=== PATIENT | male | born 1985 | race Caucasian/White ===

== ENCOUNTER 2018-08-16 12:39 | Outpatient (REF) | payer OTHER, SELFPAY ==
[2018-08-16 13:29] LABS: HCT 43.3 % (40.0-50.0); HGB 14.4 g/dL (13.5-17.5); Mean Corp. HGB Concentration 33.3 g/dL (32.0-36.0); Mean Corpuscular Hemoglobin 28.2 pg (27.0-33.0); Mean Corpuscular Volume 84.7 fL (80-95); Mean Platelet Volume 9.6 fL (8.0-11.0); Platelet Count 307 x1000/uL (130-400); RBC 5.11 m/cumm (4.50-6.00); RBC Distribution Width 12.9 % (11.8-14.1); White Blood Cell Count 7.48 k/cumm (4.4-10.8)
[2018-08-16 13:43] LABS: ALT 30 U/L (12-78); AST 18 U/L (15-37); Alkaline Phosphatase 76 U/L (46-116); Anion Gap 10.8 mmol/L (3-11); BUN 15 mg/dL (7-18); Bilirubin, Total 0.8 mg/dL (0.2-1.0); CO2 27.2 mmol/L (21.0-32.0); CREATININE 0.96 mg/dL (0.70-1.30); Calculated LDL 120 mg/dL; Chloride 102 mmol/L (98-107); Cholesterol 177 mg/dL (50-200); Glucose 92 mg/dL (70-100); HDL Cholesterol 40 mg/dL (40-60); Potassium 4.4 mmol/L (3.5-5.1); Sodium 140 mmol/L (136-145); Triglyceride 87 mg/dL (30-150)
== END 2018-08-16 12:59 ==
LOC: NCHCN 12:39
PROVIDERS: PCP Internal Medicine; Visit Provider Nurse Practitioner Family
DX: Z00.00 Encounter for general adult medical examination without abnormal findings (principal); Z13.220 Encounter for screening for lipoid disorders; Z13.0 Encounter for screening for diseases of the blood and blood-forming organs and certain disorders involving the immune mechanism; Z13.228 Encounter for screening for other metabolic disorders
CPT/HCPCS: 80053; 80061; 83721; 85027

== ENCOUNTER 2021-11-18 02:09 | Outpatient (CLI) | payer BC, SELFPAY ==
[2021-11-18] MEDS: Albuterol HFA 18 GM 200 PUFF INH IH (11:40)
[2021-11-18] MEDS: Inhaler, Assist Device 1 EACH MC (11:41)
--- NOTE | 2021-11-18 12:13 | W.PFT ---
Date of service: 11/18/21 Time of Service: 10:08 Pulmonary Function Test Result Requesting Provider Nathan Wheeler Indications: Nocturnal Dyspnea Interpretation Spirometry: There is mild airflow limitation. There is a significant bronchodilator response. Lung Volumes: Lung volumes are normal. Diffusion Capacity: Diffusion is normal. Airway Pressure: Normal airways resistance Impression Mild airflow obstruction with a significant bronchodilator response. In the correct clinical setting this could represent poorly controlled asthma or chronic bronchitis (COPD). Clinical Correlation therefore is recommended.
== END 2021-11-18 02:10 | disposition home or self-care (01) ==
LOC: RT 02:09
PROVIDERS: PCP Internal Medicine; Visit Provider Family Medicine
DX: R06.02 Shortness of breath (principal); R05.8 Other specified cough; J98.8 Other specified respiratory disorders; R06.09 Other forms of dyspnea
CPT/HCPCS: 94060; 94726; 94729

== ENCOUNTER 2022-09-09 09:36 | Outpatient (CLI) | payer BC, SELFPAY ==
--- NOTE | 2022-09-09 09:27 | DI.RAD_ITS ---
Exam(s) XR KNEE LT 3V AP,LAT,YAMILETH EXAM: XR KNEE LT 3V AP,LAT,YAMILETH CLINICAL HISTORY: Left knee pain. TECHNIQUE: 2D digital imaging was performed of the left knee. Three images were obtained. Merchant ,AP and lateral views were obtained. COMPARISON: No exams were available for comparison FINDINGS: BONES: No acute fracture is present. No bony destructive lesion is seen. JOINTS: The knee is normally aligned. There is a small joint effusion. Small osteophytes are seen in the medial femoral tibial and patellofemoral joint. There is mild narrowing in the femoral tibial j oint space. SOFT TISSUE: Normal. IMPRESSION: Mild degenerative changes of the knee. Small joint effusion. DATA REPOSITORY: RADIATION DOSE DELIVERED:
== END 2022-09-09 09:37 | disposition home or self-care (01) ==
LOC: DIORS 09:36
PROVIDERS: PCP Family Medicine; Referring Provider Family Medicine; Visit Provider Student in an Organized Health Care Education/Training Program
DX: M25.462 Effusion, left knee; M17.12 Unilateral primary osteoarthritis, left knee
CPT/HCPCS: 73562

== ENCOUNTER → 2022-11-05 02:04 | Outpatient (CLI) | payer BC, SELFPAY ==
--- NOTE | 2022-11-05 09:30 | DI.MRI_ITS ---
Exam(s) MR LOWER JOINT LT WO EXAM: MR LOWER JOINT LT WO CLINICAL HISTORY: ? LATERAL MENISCAL TEAR,INJURY LT MENISCUS,S83.8X2A. TECHNIQUE: Multiplanar multisequence MRI was performed. COMPARISON: CR XR KNEE LT 3V AP,LAT,YAMILETH from 09/09/2022 FINDINGS: BONES: There is no fracture or contusion pattern. There is marrow edema seen in the lateral tibial pl ateau without definite fracture. JOINTS: Articular cartilage is unremarkable. There is a small joint effusion. TENDONS: Extensor mechanism: Unremarkable. Medial retinaculum: Unremarkable. Lateral retinaculum: Unremarkable. Popliteus: Unremarkable. MUSCLES: Unremarkable. MENISCI: The medial meniscus is unremarkable. There is degenerative signal seen in the body of the l ateral meniscus. SOFT TISSUES: There is a popliteal cyst present. LIGAMENTS: Anterior Cruciate: Unremarkable. Posterior Cruciate: Unremarkable. Medial Collateral:Unremarkable. Lateral Collateral: Unremarkable. OTHER: IMPRESSION: 1. Marrow edema seen in the lateral tibial plateau. This may represent a contusion no fractures iden tified. There is very mild marrow edema also seen in the lateral femoral condyle. 2. Degenerative signal seen in the body of the lateral meniscus. 3. No evidence of a ligament tear. 4. Small joint effusion. 5. Popliteal cyst. DATA REPOSITORY:
== END ==
PROVIDERS: PCP Family Medicine; Visit Provider Student in an Organized Health Care Education/Training Program
DX: S83.8X2A Sprain of other specified parts of left knee, initial encounter (principal); M17.12 Unilateral primary osteoarthritis, left knee; X58.XXXA Exposure to other specified factors, initial encounter
CPT/HCPCS: 73721

== ENCOUNTER 2023-02-02 12:59 | Outpatient (CLI) | payer BC, SELFPAY ==
[2023-02-02 11:44] LABS: Abs Immature Grans 0.03 10^3/uL (0.0-0.06); Absolute Basophil Count 0.04 10^3/uL (0.0-0.2); Absolute Eosinophil Count 0.01 10^3/uL (0.0-0.7); Absolute Lymphocyte Count 1.07 10^3/uL (1.2-3.4); Absolute Monocyte Count 0.94 10^3/uL (0.1-0.8); Absolute Neutrophil Count 6.85 10^3/uL (1.2-6.7); Basophils % 0.4; Eosinophils % 0.1; HCT 47.2 % (40.0-50.0); HGB 15.4 g/dL (13.5-17.5); Immature Grans % 0.3; MCH 27.4 pg (27.0-33.0); MCHC 32.6 % (32.0-36.0); MCV 84 fL (80-95); MPV 8.2 fL (8.0-11.0); Monocytes % 10.5; Neutrophils % 76.7; Platelet Count 210 10^3/uL (130-400); RBC 5.62 10^6/uL (4.36-5.78); RDW 12.5 % (11.8-14.1); RDW-SD 38.2 fL; WBC 8.94 10^3/uL (4.4-10.8)
[2023-02-02 12:01] LABS: ALT 27 U/L (16-63); AST 17 U/L (15-37); Alkaline Phosphatase 61 U/L (46-116); Anion Gap 7.9 mmol/L (3-11); BUN 9 mg/dL (7-18); Bilirubin, Total 0.7 mg/dL (0.2-1.0); CO2 28.1 mmol/L (21.0-32.0); CREATININE 1.1 mg/dL (0.70-1.30); Chloride 98 mmol/L (98-107); Estimated GFR 87.57 (mL/min/1.73m2); Glucose 114 mg/dL (74-106); Potassium 4.1 mmol/L (3.5-5.1); Sodium 134 mmol/L (136-145); Total Protein 7.9 g/dL (6.4-8.2)
--- OUTSIDE RECORDS SUMMARY | 2023-02-02 13:01 | XMS_ITS | Continuity of Care Document ---
Author Name Unknown Organization [facility] Address [address] [place] [address] Encounter [facility] FIN NBR [id number] Date(s): 01/03/23 - 01/03/23 [facility] [address] [place] [address]- [place] Encounter Diagnosis Sore throat(Discharge Diagnosis) - 01/03/23 Strep pharyngitis(Discharge Diagnosis) - 01/03/23 Discharge Disposition: Home or Self Care Attending Physician: Evette Harper PA-C Admitting Physician: Evette Harper PA-C Allergies, Adverse Reactions, Alerts No Known Allergies Functional Status 01/03/23 Other exposure to Infectious Disease COV ID-19 Symptoms Present Medications amoxicillin 500 mg oral capsule 500 mg = 1 cap, Oral, every 12 hr, # 20 cap, 0 Refill(s), Pharmacy: [facility] #[id number] Start Date: 01/03/23 Status: Ordered Flonase 0 Refill(s) Start Date: 01/03/23 Status: Ordered Symbicort 80 mcg-4.5 mcg/inh inhalation aerosol 0 Refill(s) Start Date: 01/03/23 Status: Ordered Results Laboratory List Name Date Rapid Strep POCT 01/03/23 Most recent to oldest [Reference Range]: 1 Rapid Strep POCT [Negative] Positive *ABN* (01/03/23 10:10 AM) Vital Signs Most recent to oldest [Reference Range]: 1 Temperature Tympanic [36.6-38.1 Deg C] 3 7.3 Deg C (01/03/23 9:57 AM) Peripheral Pulse Rate [60-100 bpm] 98 bp m (01/03/23 9:57 AM) Respiratory Rate [12-24 br/min] 16 br/mi n (01/03/23 9:57 AM) Blood Pressure [90-140/60-90 mmHg] 150/7 2mmHg *HI* (01/03/23 9:57 AM) Mean Arterial Pressure, Cuff [70-110 mmH g] 98 mmHg (01/03/23 9:57 AM) Physician Outpatient Note * Evette Harper PA-C: PERFORM Event Display: Office Clinic Note Physician Authored Date: [id number] [facility] :1985 Age:37 years Sex:Male Visit Date:01/03/2023 Chief Complaint Sore throat, swollen tonsils, fever, body aches, RODRIGUEZ, and fatigue since wednesday night History of Present Illness This is a 37-year-old male who presents for evaluation of sore throat. ??Patient reports that on Wednesday he began to feel under the weather. ??He woke Wednesday morning with a severe sore throat. ??He has had painful swallowing.?? He is tolerating small sips of tea but??has been having difficulty??drinking large amounts of fluids or eating any food. ??He is feeling feverish and achy. ??He has not had a cough or congestion.?? He denies difficulty??managing his own saliva, drooling Physical Exam Vitals & Measurements T:??37.3?C ??(Tympanic)?? HR:??98??(Peripheral)?? RR:??16?? BP:??150/72?? SpO2:??98%?? Pain Score:??5?? General: A&O x 3, well-built and hydrated, no acute distress Eyes: PERRLA, no redness or drainage Ears: auditory canals non-tender bilaterally, bilateral TMs translucent and pearly davis Nose: nares moist and patent Mouth: moist mucous membranes without lesions Throat: Tonsils 3+ bilaterally with erythema and copious exudate,??no uvular deviation??or trismus,no abscess appreciated, managing secretions Neck:??Moderately enlarged, tender anterior cervical lymphadenopathy Chest: symmetric rise Heart: normal S1S2, no murmurs, rubs, gallops Lungs: equal and symmetric respiratory effort, lungs clear to auscultation without wheezes, rales, rhonchi Assessment/Plan 1.??Strep pharyngitis??J02.0 Patient tested positive for strep today and will be treated accordingly with amoxicillin. ??He has had difficulty??drinking fluids and eating any food over the past week. ??He does not have any evidence of abscess, uvular deviation, trismus on exam??but given he has had difficulty hydrating,??he??did request treatment with a one-time dose of a steroid today. ??I feel this is appropriate given??his presentation. ??We reviewed risks and benefits. ??He was given 10 mg of dexamethasone IM today.?? Encouraged rest, fluids, taking Tylenol for any pain or fever. ??Advise he avoid any??NSAIDs for thenext??24 hours.?? A humidifier and throat coat tea may be therapeutic. ??Patient is to follow-up for any worsening sore throat,??difficulty??tolerating fluids p.o., drooling, etc. Ordered: amoxicillin 500 mg oral capsule, 500 mg = 1 cap, Oral, every 12 hr, # 20 cap, 0 Refill(s), Pharmacy: [facility] #[id number] ?? Sore throat??J02.9 ?? Medications and Immunizations This Visit Given dexamethasone, 10 mg, IM. For: Strep pharyngitis Problem List/Past Medical History Ongoing No qualifying data Historical No qualifying data Medications amoxicillin 500 mg oral capsule, 500 mg= 1 cap, Oral, every 12 hr Flonase Symbicort 80 mcg-4.5 mcg/inh inhalation aerosol Allergies No Known Allergies Lab Results Test Name Test Result Date/Time Rapid Strep POCT Positive 01/03/2023 10:10 EST Electronically Signed on 01/03/23 11:09 AM Evtete Harper PA-C Patient Care team information Care Team Related Persons Name: OZZIE LEÓN
== END 2023-02-02 13:00 | disposition home or self-care (01) ==
LOC: LBO 13:00
PROVIDERS: PCP Family Medicine; Visit Provider Nurse Practitioner Family
DX: R19.7 Diarrhea, unspecified (principal)
CPT/HCPCS: 36415; 80053; 85025

== ENCOUNTER 2023-02-02 19:26 | Outpatient (REF) | payer BC, SELFPAY ==
[2023-02-02 15:35] LABS: C Diff PCR Negative (Negative)
[2023-02-03 10:33] LABS: Campylobacter PCR Negative (Negative); Shiga Toxin PCR Negative (Negative); Shigella/Enteroinvasive Ecoli Negative (Negative)
[2023-02-04 16:39] LABS: Salmonella PCR Positive (Negative)
== END 2023-02-02 19:27 | disposition home or self-care (01) ==
LOC: LBN 19:26
PROVIDERS: PCP Family Medicine; Visit Provider Nurse Practitioner Family
DX: R19.7 Diarrhea, unspecified (principal)
CPT/HCPCS: 87329; 87493; 87505

== ENCOUNTER 2023-07-21 13:21 | Outpatient (REF) | payer BC, SELFPAY ==
[2023-07-21 15:32] LABS: Calculated LDL 104 mg/dL (<100); Cholesterol 176 mg/dL (<200); HDL Cholesterol 57 mg/dL (40-60); Triglyceride 78 mg/dL (<150)
[2023-07-23 11:54] LABS: Apolipoprotein B, S 79 mg/dL
== END 2023-07-21 13:22 | disposition home or self-care (01) ==
LOC: NCHCN 13:21
PROVIDERS: PCP Family Medicine; Visit Provider Student in an Organized Health Care Education/Training Program
DX: Z13.220 Encounter for screening for lipoid disorders (principal); Z13.228 Encounter for screening for other metabolic disorders
CPT/HCPCS: 80061; 82172

== ENCOUNTER 2023-11-19 06:15 | Day surgery (SDC) | payer BC, SELFPAY ==
--- NOTE | 2023-11-18 14:35 | HPE_ITS ---
Date of service: 11/19/23 Time of Service: 07:30 Assessment and Plan Assessment and plan (1) Family history of colon cancer: Status: Acute Assessment and plan: Plan: Colonoscopy w/ general & natural airway. The?patient will be scheduled by my office. -Patient has 2 family members with second-degree colorectal cancer. It would not be unreasonable to start screening at home. Informed consent is obtained for the procedural (explained in simple layman's terms that?the pt and/or family could understand) explaining risks vs benefits and alternatives to the procedure and consequences if we do not do the procedure and need/rational for the procedure. Risks include but are not limited to: bleeding, infection, perforation of colon.? This would necessitate emergency surgery to repair the damage w/ possible ostomy; and other associated complications w/ the required surgery. ? Also complications of anesthesia including aspiration, CA/CVA/, inability to complete the procedure. (2) Family history of secondary colorectal cancer: Status: Acute (3) Asthma: Status: Chronic History of Present Illness Narrative: Patient is here today for colonoscopy for CRC screening.??? They completed a bowel prep with just a clear yellow residual effluent.? They not having any chest pain or shortness of breath, currently.? They are not experiencing any fever or chills.? They deny any productive cough or upper respiratory tract infection signs or symptoms.? They are not having abdominal pain, or nausea and vomiting.? They have not had any changes in medications, past medical history or past surgical history since previously being seen in the office. They have not had any accidents or have been in the ER since the clinic pre-operative evaluation. ??I reviewed the procedure with the patient today, including risks a nd benefits of the procedure, and what they could expect at home for recovery.? All questions are answered to the patient?s satisfaction today, and they are stable to proceed with the proposed procedure. RN: Pt here for colonoscopy pre op. Family history of colon cancer, maternal great uncle and paternal grandmother.. Pt denies any recent bowel habit changes, but does state that bowels are variable based on diet and travel. Pt seen at the request of PCP regarding colon cancer screening. Pt has had colon cancer screening before.? He notes his bowels are variable depnding on travel and exercise- very irrgular . .? They deny any pain or difficulty with bowel movements, or rectal bleeding.?Occ will have some bleeding when he wipes w/ a hard stools, rare and probably related not not driking enough fluids. . There is family history of any colon cancer.? Pt has not had any unexplained weight loss.? Their appetite is good.? ?They deny heart, lung, or kidney prob lems. They are having heartburn or indigestion. They have not had any prior colo-rectal surgery.? The patient has not had a prior prostate sx or XRT. .? They deny any problems with anesthesia in the past. GERD: more than 1 beer or more than 2 days in a row. Fried foods. takes prn zantac Had episode of Salmenella. Recurred since then. Paternal Gma- age 60-70 Maternal Uncle - age Anesthesia: general (without airway) Previous surgical intolerances: No Previous surgical complications: No Pulmonary risk factors: Planned procedure: Yes Sleep apnea risks: No COPD/Asthma/Smoker: Asthma- exercise and seasonal allergies. only uses prn inhaler in spring or if long bike ride. Can climb one flight of stairs (12-13 steps) in less than 30 seconds without stopping and without symptoms: Yes The surgery proposed for this patient is: low risk Active cardiac conditions: none Active risk factors: none ASA (acetylsalicylic acid): not used Beta blockers: not used Kidneys: no concerns DM: no CVA/CA- No ?PSHX R knee scopes anesthesia- no problems Review of Systems All systems reviewed & are unremarkable except as noted in HPI and below PFSH All Active Problems Family history of secondary colorectal cancer (Acute) x2 2nd degree family members w/ CRC Left knee DJD (Acute) Injury of meniscus of left knee (Acute) Asthma (Chronic) Family history of colon cancer (Acute) x2 2nd degree family members w/ CRC Vertigo (Acute) Lower back pain (Acute) Wrist pain (Acute) Skin lesions (Acute) Skin rash (Acute) Uses contraception (Acute) SOB (shortness of breath) (Acute) Allergic rhinitis (Acute) Medical History Salmonella gastroenteritis Surgical History Hx of arthroscopy of knee Social History Smoking/Tobacco Use Status: Never Smoking risk assessment performed?: Yes Alcohol Intake: never Drug use: Never Substance use type: does not use Housing: house Current gender identity: male Do you feel safe at home: Yes Do you feel safe in your relationship?: Yes Meds Allergies and Home Medications Allergies Allergy/AdvReac Type Severity Reaction Status Date / Time No Known Allergies Allergy Verified 11/19/23 06:40 Home Medications ?Medication ?Instructions ?Recorded ?Confirmed ?Type cetirizine 10 mg tablet 10 mg PO DAILY PRN 11/06/21 11/19/23 History budesonide-formoterol HFA 160 2 puff inhalation BID 08/09/23 11/19/23 History mcg-4.5 mcg/actuation aerosol inhaler (Symbicort) fluticasone propionate 50 1 spray intranasal BID 11/18/23 11/19/23 History mcg/actuation nasal spray,suspension Exam Narrative Exam Narrative: PHYSICAL EXAM GENERAL APPEARANCE: Alert, healthy appearance, oriented, x 3,? in no acute distress HYDRATION: Well hydrated HEAD, EYES, EARS, NECK, THROAT: Head is normocephalic, pupils equal, round, re active to light and accommodation, ocular movement intact, sclera clear and no jaundice. ?Dentition intact. LUNGS: normal respiration/normal chest excursion. ?Clear to auscultation bilaterally. ?No wheeze. ?HEART: Regular rate and rhythm. no murmurs ABDOMEN: soft and non-tender to palpation.? Normal bowel sounds. Time Spent Time spent with Patient: <40 minutes Time was spent: preparing to see the patient(eg.review tests), obtaining and/or reviewing separately otained hiistory, ordering medications,tests, procedures, referring, communicating with other health assistant child care teacher, indepentently interpreting results, counseling the patient, care coordination and other
--- NOTE | 2023-11-18 14:37 | PDOC.DSDIS_ITS ---
Date of service: 11/19/23 Time of Service: 08:20 Discharge Plan Disposition Patient Disposition: Home Condition: Good Discharge Details Reason For Visit: crc screening Attending Provider: Emilia Marx Primary Care Provider: Nathan Wheeler Home Meds and New Rx's Prescriptions: No Action cetirizine 10 mg tablet 10 mg PO DAILY PRN budesonide-formoterol [Symbicort] 160-4.5 mcg/actuation HFA aerosol inhaler 2 puff inhalation BID fluticasone propionate 50 mcg/actuation spray,suspension 1 spray INTRANASAL BID Patient Comments: SPRAY ONE SPRAY IN EACH NOSTRIL TWICE A DAY Discharge Instructions Additional Instructions: DSU Colonoscopy Post- Op Instructions Instructions for Everyone who is given Anesthesia: For your safety, please do the following for the next twenty-four (24) hours: *Do Not operate a motor vehicle (car, truck, motorcycle, etc.) *Do Not drink alcoholic beverages or use any recreational drugs for the first 24 hours or while taking pain medications. The medications in your body may have a reaction that can be dangerous. *Do Not make any important decisions or sign any important papers. Findings: normal Follow up: repeat 5 yrs time Of course, you should continue to have a yearly physical exam including a rectal exam. If you should ever notice any pain or difficulty having a bowel movement, blood in the stool, unexplained weight loss, or change in your bowel habits, please contact your health provider. 1. No lifting over 20 pounds or strenuous activity for the first 24 hours after your procedure. After 24 hours there are no restrictions on your activity but you may feel fatigued for a few days. 2. After you arrive home you may have a light meal and return to your normal diet as you can tolerate it without feeling sick to your stomach. 3. You may have a bloated, gaseous feeling in your belly (abdomen) after a colonoscopy. Passing gas and belching will help. Walking or lying down on your left side with your knees flexed may relieve the discomfort. Call the office at [phone] (Office) or [phone] (Hospital) right away if you notice any of the following: a.Vomiting of blood or ?coffee ground stools?. b.Rectal bleeding 1Tbsp, blood clots or continuous bleeding. c.Severe belly (abdominal) pain. d.A hard distended belly (abdomen) and an inability to pass gas. 4. Please don?t expect to have a normal BM (bowel movement) for 2-3 days after your procedure. 5. If there are questions regarding the findings of your procedure, please contact your doctor 6. If you are unable to contact your doctor with a problem, contact the hospital at [phone]. 7. Continue all your regular medications unless directed otherwise. I understand the above instructions and have no questions. Signature of Patient or Adult Escort Name of Responsible Adult Escort Signature of Nurse Date/Time Stand Alone Forms: Anesthesia Discharge Inst., Filomena Mcduffie (DSU) Activity:: see above Diet:: see above Discharge Orders Discharge Orders: Discharge Order (Routine); Ordered 11/19/23 Ordered By: Emilia Marx DS: Diagnosis Discharge Diagnosis (1) Family history of colon cancer: Status: Acute (2) Family history of secondary colorectal cancer: Status: Acute Asessment and Plan: The patient is seen and examined after their colonoscopy.? The patient has been able to pass gas.? They are not having abdominal pain.? They have been able to tolerate liquids and a snack.? They do not have any nausea or vomiting.? They are not having any chest pain or shortness of breath.??? They are not having any rectal bleeding. Their vital signs have been stable-see nursing notes. We discussed findings during their colonoscopy, and any biopsies that were done/polyps that were removed. The patient will be sent a letter with any biopsy results, and when to repeat the colonoscopy.-see discharge instructions. Patient was given explicit instructions to follow-up regarding colonoscopy-refer to discharge instructions.? We reviewed resumption of medications. Patient verbalized understanding and discharged in stable and satisfactory condition- See nursing notes. (3) Asthma: Status: Chronic
--- NOTE | 2023-11-18 18:35 | ANES.PREOP_ITS ---
General Info Date of Service Date Performed: 11/19/23 Height: 6 ft 2 in Weight: 81.647 kg Body Mass Index (BMI): 23.1 Surgical Procedure: Operation Date: 11/19/23 07:35 Proposed Procedure Side Surgeon sam Marx, DO Meds Allergies and Home Medications Allergies Allergy/AdvReac Type Severity Reaction Status Date / Time No Known Allergies Allergy Verified 11/19/23 06:40 Home Medication ?Medication ?Instructions ?Recorded cetirizine 10 mg tablet 10 mg PO DAILY PRN 11/06/21 budesonide-formoterol HFA 160 2 puff inhalation BID 08/09/23 mcg-4.5 mcg/actuation aerosol inhaler (Symbicort) fluticasone propionate 50 1 spray intranasal BID 11/18/23 mcg/actuation nasal spray,suspension Current Visit Medications: Current Medications Generic Name Dose Route Start Last Admin Trade Name Freq PRN Reason Stop Dose Admin Hyoscyamine Sulfate 0.125 mg 11/19/23 02:34 Hyoscyamine 0.125 Mg Sl/Oral/Chew SL 12/19/23 02:33 DIRECTED PRN Ringer's Solution 1,000 mls @ 80 mls/hr 11/19/23 06:00 IV 12/18/23 23:59 [facility]ION [facility] IV Miscellaneous Supplies 1 each 11/19/23 06:00 Iv Access IV 12/18/23 23:59 DIRECTED CAPO Ondansetron HCl 4 mg 11/19/23 02:34 Ondansetron 4 Mg/2 Ml Vial IVP 12/19/23 02:33 Q4H PRN PRN Nausea / Vomiting Sodium Chloride 0 ml 11/19/23 06:00 Normal Saline Flush 10 Ml Syr IV 12/18/23 23:59 PRN PRN Sodium Chloride 0 ml 11/19/23 06:00 Normal Saline 10 Ml Vial IJ 12/18/23 23:59 DIRECTED PRN Sterile Water 0 ml 11/19/23 06:00 Water,Injection,Sterile 10 Ml Vial IJ 12/18/23 23:59 DIRECTED PRN PFSH Active Problems Active Problems: Problem Status Onset Code Family history of secondary colorectal cancer Acute Z80.0 Left knee DJD Acute M17.12 Injury of meniscus of left knee Acute S83.8X2A Asthma Chronic J45.909 Family history of colon cancer Acute Z80.0 Vertigo Acute R42 Lower back pain Acute M54.50 Wrist pain Acute M25.539 Skin lesions Acute L98.9 Skin rash Acute R21 Uses contraception Acute Z78.9 SOB (shortness of breath) Acute R06.02 Allergic rhinitis Acute J30.9 Medical History Medical History Salmonella gastroenteritis Surgical History Surgical History Hx of arthroscopy of knee Tobacco Smoking/Tobacco Use Status: Never Alcohol Alcohol Intake: never Substance Use Substance use: Never Substance use type: does not use Vital Signs and Lab Results Vital Signs Most Recent Vital Signs in EMR: Temp Pulse Resp BP Pulse Ox 36.2 C L 71 16 129/60 98 11/19/23 06:35 11/19/23 06:35 11/19/23 06:35 11/19/23 06:35 11/19/23 06:35 Lab Results Blood Type / Crossmatch: No Data to Display Complete Blood Count: No Data to Display Complete Metabolic Panel: No Data to Display Liver Function Panel: No Data to Display Coagulation Panel: No Data to Display Cardiac Panel: No Data to Display Arterial Blood Gas: No Data to Display Venous Blood Gas: No Data to Display Pancreas Panel: No Data to Display Thyroid Panel: No Data to Display Infectious Disease: No Data to Display Blood Cultures: No Data to Display Toxicology Panel: No Data to Display Anesthesia Assessment and Plan Anesthesia History Personal History: No History of Anesthesia Complications Family History: No Family History of Anesthesia Complications Exercise Tolerance Exercise Tolerance: Metabolic Equivalents>4 Cardiac & Pulmonary Exam Cardiac Exam: Normal S1/S2 Heart Sounds Pulmonary Exam: Clear Bilateral Breath Sounds Implantable Cardiac Device Does patient have a Pacemaker or an ICD?: No Airway Exam Known Difficult Airway: No Mallampati Class: 1 Mouth Opening: Normal (> 3cm) Thyromental Distance: Greater than 3 cm Neck Range of Motion: Full ROM Neck Circumference: Normal Teeth Condition: Normal Dentition ASA Classification ASA Score: ASA 2 Emergency Case?: No NPO Status NPO Status: NPO Clears >2 hours, Solids >8 hours Anesthesia Plan Resuscitation Status: Full Code Anesthesia Technique: General Anesthesia Airway Planned: Natural Airway Monitors Used: Standard Monitors Preoperative Comments:: 38 yo male with family hx of colorectal CA for colo. Sig PMHx: Asthma (Symbicort), never smoker. PFTs: mild obstruction with sig bronchodilator response.
[2023-11-19 06:35] VITALS: BP 129/60; PULSE 71; RESP 16; TEMP 36.2; O2SAT 98
[2023-11-19] MEDS: Lactated Ringers 1,000 ML 80 ML IV (06:51)
[2023-11-19 07:14] VITALS: BMI 23.1
[2023-11-19 08:02] VITALS: BP 119/53; PULSE 68; RESP 18; TEMP 36.4; O2SAT 99
--- NOTE | 2023-11-19 08:10 | W.ANESPOSTOP ---
Postoperative Evaluation Date, Time and Location Date Performed: 11/19/23 Time Performed: 08:10 Patient Location: Day Surgery Unit Vital Signs Most Recent Imported Vital Signs: Most Recent Vital Signs Temp Pulse Resp BP Pulse Ox 36.4 C L 68 18 119/53 L 99 11/19/23 08:02 11/19/23 08:02 11/19/23 08:02 11/19/23 08:02 11/19/23 08:02 Pain Score Most Recent Pain Score: Most Recent Pain Score Pain Level 0 11/19/23 08:02 Assessment Mental Status: Awake (Alert & Oriented to Patient Baseline) Airway and Respiratory Function: Patent airway with normal (patient baseline) respiratory exam Cardiovascular Function: Hemodynamically Stable Hydration Status: Adequately Hydrated Nausea & Vomiting: No Nausea or Vomiting Pain: Pt. Denies Any Pain Peripheral Nerve Block: Patient did not receive a nerve block
--- NOTE | 2023-11-19 08:21 | COLE_ITS ---
Date of service: 11/19/23 Time of Service: 08:21 Colonoscopy Report Date of procedure: 11/19/23 Pre-op diagnosis general: X 2 second-degree family members with colorectal cancer/screen Surgeon: Emilia Marx Anesthesia Type: General:No Airway Estimated blood loss (mL): 0 Pathology: none sent Complications: None Disposition: same day Prep: Miralax/Dulcolax Retraction Time: 9 Procedure Description: After informed consent was obtained, explaining risks of the procedure, including but not limits to: bleeding, infections, complications of anesthesia, perforations (which may require antibiotics and /or surgery and stay in the hospital), and abdominal pain/cramping. The patient was taken to the procedure room and placed in a left decubitous position. Monitors were applied and a time out was done. The patients name, date of , procedure, allergies to medications and metal in their body was reviewed. The patient was then sedated. Once sedated and comfortable a rectal exam was done. External exam was normal. Internal exam revealed a normal sphincter tone and no palpable masses. The previously lubricated Olympus scope was then introduced (see RN notes for scope number) and retrofelexed. No internal hemorrhoids were identified. The scope was then advanced to the cecum without difficulty. The TI and appendiceal orifice were identified. The scope was then slowly retracted over 9 minutes back into the rectum. Polyps: no. Diverticula: no. The mucosa is pink and healthy w/ a normal vascular pattern. The scope was removed, and the patient was woken up and taken back to Same day surgery in stable condition. The patient tolerated the procedure well and there were no immediate complications. Follow up: The patient should follow up in 5 years, unless they develop changes in bowel habits or other new gastrointestinal complaints. [place] Bowel Prep [place] Bowel Prep Right Colon: 3 Left Colon: 3 Transverse Colon: 3 Total Score: 9
[2023-11-19 08:29] VITALS: BP 125/61; PULSE 55; RESP 16; TEMP 36.2; O2SAT 100
== END 2023-11-19 09:06 | disposition home or self-care (01) ==
LOC: SUR 06:15
PROVIDERS: PCP Family Medicine; Visit Provider Surgery
PROC: 0DJD8ZZ Inspection of Lower Intestinal Tract, Via Natural or Artificial Opening Endoscopic (ICD-10-PCS; CPT 45378; principal; 2023-11-19 07:30)
DX: Z80.0 Family history of malignant neoplasm of digestive organs (principal); Z12.11 Encounter for screening for malignant neoplasm of colon
CPT/HCPCS: 45378; J2704

== ENCOUNTER 2024-01-04 04:49 | Emergency (ER) | payer BC, SELFPAY ==
[2024-01-04 04:54] VITALS: BP 145/88; PULSE 60; RESP 16; TEMP 36.6; O2SAT 99
--- NOTE | 2024-01-04 05:07 | W.ED.GENAD ---
Discharge Plan Disposition Patient Disposition: Home Condition: Good Discharge Details Clinical Impression: Abdominal cramping Primary Care Provider: Buster Puente ED Provider: Mena Yee Home Meds and New Rx's Prescriptions: Continued cetirizine 10 mg tablet 10 mg PO DAILY PRN budesonide-formoterol [Symbicort] 160-4.5 mcg/actuation HFA aerosol inhaler 2 puff inhalation BID fluticasone propionate 50 mcg/actuation spray,suspension 1 spray INTRANASAL BID Patient Comments: SPRAY ONE SPRAY IN EACH NOSTRIL TWICE A DAY Discharge Instructions Instructions: Abdominal Pain, Adult ED Additional Instructions: Tylenol and ibuprofen over the counter for pain; follow the directions on the bottle. You can also try a heat pack. Call your primary care doctor today to schedule an appointment for within the next 72 hours to followup on your visit here. Return to the emergency department for new or worsening symptoms including fever, dark/bloody stool, inability to keep down fluids, new/different/worse pain, or if you have any other concerns. Stand Alone Forms: Work Release Referrals: Buster Puente [Primary Care Provider] - [facility] General Mode of arrival: ambulatory. Date/Time Provider Initiated Documentation: 01/04/24 04:55. Limitations to Documentation: no limitations. Information obtained by: patient. HPI Narrative: 38yo M with hx of asthma presenting with abdominal pain. Symptoms started last week, lasted about a day, then resolved. Recurred again the day before yesterday. Pain is dull, crampy, all over but worst in the lower abdomen. Sometimes feels rumbling in his low abdomen. Pain kept him awake last night. Has not tried anything at home for pain. No nausea, vomiting, constipation, diarrhea, bloody stool, melena, dysuria, hematuria, fever, testicular pain, penile discharge. Otherwise in his usual state of health. Related Data Home Medications ?Medication ?Instructions ?Recorded ?Confirmed cetirizine 10 mg tablet 10 mg PO DAILY PRN 11/06/21 01/04/24 budesonide-formoterol HFA 160 2 puff inhalation BID 08/09/23 01/04/24 mcg-4.5 mcg/actuation aerosol inhaler (Symbicort) fluticasone propionate 50 1 spray intranasal BID 11/18/23 01/04/24 mcg/actuation nasal spray,suspension Allergies Allergy/AdvReac Type Severity Reaction Status Date / Time No Known Allergies Allergy Verified 01/04/24 05:00 General Stated Complaint: Abd Prob SEVEN: 3 Review of Systems Narrative: see HPI Exam Narrative Exam Narrative: General: Alert, well appearing, well nourished, in no distress. Head: Normocephalic, atraumatic Neck: Trachea midline, ?Neck supple. ENT: ?MMM.? No oropharygeal lesions or exudate. Cardiac: ?RRR, no murmurs appreciated Resp: No respiratory distress. CTAB. Abd: ?Soft, non-distended, nontender. : ?No suprapubic tenderness. No CVA tenderness. Extremities: ?No deformities.? No peripheral edema. Neurologic: GCS 15. ? Moves all extremities freely against gravity Course Vital Signs Vital signs: Vital Signs Temperature 36.6 C 01/04/24 04:54 Pulse 60 01/04/24 04:54 Respiratory Rate 16 01/04/24 04:54 Blood Pressure 145/88 H 01/04/24 04:54 Pulse Oximetry 99 01/04/24 04:54 Temperature 36.6 C 01/04/24 04:54 Pulse 60 01/04/24 04:54 Respiratory Rate 16 01/04/24 04:54 Respiratory Effort Normal, Non-Labored 01/04/24 05:01 Blood Pressure 145/88 H 01/04/24 04:54 Pulse Oximetry 99 01/04/24 04:54 Oxygen Delivery Method Room Air 01/04/24 04:54 Oxygen Flow Rate 0 01/04/24 04:54 Pain Level 5 01/04/24 04:59 Medical Decision Making 38yo M with hx of asthma presenting with abdominal pain. Pain is dull, crampy, all over but worst in the lower abdomen; sometimes feels rumbling in his low abdomen. Has not tried anything at home for pain. No associated symptoms. Vital signs reassuring on arrival. Well appearing and in no distress on exam. Abdomen is nontender. No pain out of proportion or significant risk factors to suggest mesenteric ischemia. With no tenderness on exam and no associated symptoms, unlikely bowel obstruction, appendicitis, hernia, diverticulitis, or other surgical pathology. History and exam not suggestive of peptic ulcer disease, gastritis, pancreatitis, cholecystitis, pyelonephritis, nephrolithiasis, testicular torsion, aortic pathology. No indication for CT imaging at this time. Unclear etiology, may be early gastroenteritis. Presentation is not concerning for serious or life threatening pathology at this time. Will treat symptoms with tylenol, toradol, and send basic labs to risk stratify. Labs reviewed as below, CBC reassuring with no leukocytosis or anemia, CMP normal, lipase normal, UA with no hematuria or infection. On reassessment he remains well appearing with reassuring vital signs and a benign abdominal exam. I am not sure what is causing his symptoms but do not think he has any emergent pathology today. Appropriate for outpatient followup with his PCP. Discharged home; discharge instructions and return precautions were reviewed with patient who verbalized understanding. All questions were answered and he is in agreement with the plan. Lab Data Lab results reviewed: Yes I reviewed the patient's lab results. Labs: Laboratory Tests Range/Units 01/04/24 05:10 WBC (4.4-10.8) 10^3/uL 7.32 RBC (4.36-5.78) 10^6/uL 5.34 Hgb (13.5-17.5) g/dL 14.8 Hct (40.0-50.0) % 46.7 MCV (80-95) fL 88 MCH (27.0-33.0) pg 27.7 MCHC (32.0-36.0) % 31.7 L RDW (11.8-14.1) % 12.4 Plt Count (130-400) 10^3/uL 273 MPV (8.0-11.0) fL 8.8 Immature Gran % % 0.1 Neutrophils % % 52.8 Lymphocytes % % 31.8 Monocytes % % 9.7 Eosinophils % % 5.1 Basophils % % 0.5 Nucleated RBC % (0.0-0.3) % 0.0 Absolute Neutrophils (1.2-6.7) 10^3/uL 3.86 Absolute Lymphocytes (1.2-3.4) 10^3/uL 2.33 Absolute Monocytes (0.1-0.8) 10^3/uL 0.71 Absolute Eosinophils (0.0-0.7) 10^3/uL 0.37 Absolute Basophils (0.0-0.2) 10^3/uL 0.04 Sodium (136-145) mmol/L 143 Potassium (3.5-5.1) mmol/L 4.3 Chloride (98-107) mmol/L 106 Carbon Dioxide (21.0-32.0) mmol/L 30.1 Anion Gap (3-11) mmol/L 6.9 BUN (7-18) mg/dL 14 Creatinine (0.70-1.30) mg/dL 1.1 Est GFR (CKD-EPI 2020) (mL/min/1.73m2) 87.03 Glucose (74-106) mg/dL 98 Calcium (8.5-10.1) mg/dL 8.9 Total Bilirubin (0.2-1.0) mg/dL 0.75 AST (15-37) U/L 15 ALT (16-63) U/L 27 Alkaline Phosphatase (46-116) U/L 81 Total Protein (6.4-8.2) g/dL 7.6 Albumin (3.4-5.0) g/dL 4.2 Lipase (16-77) U/L 35 Urine Color (Yellow) Yellow Urine Clarity (Clear) Clear Urine pH (5-8) 5.5 Ur Specific [place] (1.005-1.025) >= 1.030 H Urine Protein (Neg-Trace) mg/dL Negative Urine Ketones (Negative) mg/dL Negative Urine Blood (Negative) Negative Urine Nitrite (Negative) Negative Urine Bilirubin (Negative) Negative Urine Urobilinogen (Up to 0.2) mg/dL 0.2 Ur Leukocyte Esterase (Negative) Negative Urine Glucose (Negative) mg/dL Negative Quality:SDOH Health Related Social Needs: No Data to Display PFSH All Active Problems (Updated 01/04/24 @ 05:44 by Mena Yee MD) Abdominal cramping (Acute) Family history of secondary colorectal cancer (Acute) x2 2nd degree family members w/ CRC Left knee DJD (Acute) Injury of meniscus of left knee (Acute) Asthma (Chronic) Family history of colon cancer (Acute) x2 2nd degree family members w/ CRC Vertigo (Acute) Lower back pain (Acute) Wrist pain (Acute) Skin lesions (Acute) Skin rash (Acute) Uses contraception (Acute) SOB (shortness of breath) (Acute) Allergic rhinitis (Acute) Medical History (Updated 01/04/24 @ 05:44 by Mena Yee MD) Salmonella gastroenteritis Surgical History (Updated 11/19/23 @ 13:21 by Lauren Carreon) History of colonoscopy (~11/2023) Hx of arthroscopy of knee Social History Smoking/Tobacco Use Status: Never Smoking risk assessment performed?: Yes Alcohol Intake: never Drug use: Never Substance use type: does not use Housing: house Current gender identity: male Do you feel safe at home: Yes Do you feel safe in your relationship?: Yes
[2024-01-04] MEDS: Acetaminophen 500 MG TAB 1000 MG PO (05:08)
[2024-01-04] MEDS: Ketorolac 15 MG/ML VIAL IVP (05:08)
[2024-01-04 05:17] LABS: Abs Immature Grans 0.01 10^3/uL (0.0-0.06); Absolute Basophil Count 0.04 10^3/uL (0.0-0.2); Absolute Eosinophil Count 0.37 10^3/uL (0.0-0.7); Absolute Lymphocyte Count 2.33 10^3/uL (1.2-3.4); Absolute Monocyte Count 0.71 10^3/uL (0.1-0.8); Absolute Neutrophil Count 3.86 10^3/uL (1.2-6.7); Basophils % 0.5 %; Eosinophils % 5.1 %; HCT 46.7 % (40.0-50.0); HGB 14.8 g/dL (13.5-17.5); Immature Grans % 0.1 %; Lymphocytes % 31.8 %; MCH 27.7 pg (27.0-33.0); MCHC 31.7 % (32.0-36.0); MCV 88 fL (80-95); MPV 8.8 fL (8.0-11.0); Monocytes % 9.7 %; Neutrophils % 52.8 %; Platelet Count 273 10^3/uL (130-400); RBC 5.34 10^6/uL (4.36-5.78); RDW 12.4 % (11.8-14.1); RDW-SD 39.8 fL; WBC 7.32 10^3/uL (4.4-10.8)
[2024-01-04 05:21] LABS: Bilirubin Negative (Negative); Blood Negative (Negative); Clarity Clear (Clear); Glucose Negative (Negative); Ketones Negative (Negative); Leukocyte Esterase Negative (Negative); Nitrite Negative (Negative); Specific Gravity >= 1.030 (1.005-1.025); Urobilinogen 0.2 mg/dL (Up to 0.2); pH 5.5 (5-8)
[2024-01-04 05:32] LABS: ALT 27 U/L (16-63); AST 15 U/L (15-37); Albumin 4.2 g/dL (3.4-5.0); Alkaline Phosphatase 81 U/L (46-116); Anion Gap 6.9 mmol/L (3-11); BUN 14 mg/dL (7-18); Bilirubin, Total 0.75 mg/dL (0.2-1.0); CO2 30.1 mmol/L (21.0-32.0); CREATININE 1.1 mg/dL (0.70-1.30); Calcium 8.9 mg/dL (8.5-10.1); Chloride 106 mmol/L (98-107); Estimated GFR 87.03 (mL/min/1.73m2); Glucose 98 mg/dL (74-106); Lipase 35 U/L (16-77); Potassium 4.3 mmol/L (3.5-5.1); Sodium 143 mmol/L (136-145); Total Protein 7.6 g/dL (6.4-8.2)
[2024-01-04 06:00] VITALS: BP 138/85; PULSE 54; RESP 14; O2SAT 98
[2024-01-04 06:09] VITALS: BP 138/85; PULSE 54; RESP 14; O2SAT 98
== END 2024-01-04 06:09 | disposition home or self-care (01) ==
LOC: ER 05:50
PROVIDERS: Emergency Provider Student in an Organized Health Care Education/Training Program; PCP Student in an Organized Health Care Education/Training Program
DX: R10.84 Generalized abdominal pain (principal)
CPT/HCPCS: 36415; 80053; 83690; 96374; 99284; 81003; 85025; 99283; J1885